=== PATIENT | female | born 1990 | race Caucasian/White ===

== ENCOUNTER 2018-06-24 19:30 | Emergency (ER) | payer MEDICAID ==
[~2018-06-24] VITALS: Ht 149.9 cm; Wt 66.8 kg
[~2018-06-24 19:30] MED LIST: FERR1TAB51; FERR1TAB51 PO; PREN-88; PREN-88 PO
[2018-06-24] MEDS ORDERED: ACETAMINOPHEN 500MG TABLET PO ONE (22:45)
[2018-06-25 00:28] VITALS: BP 124/80
== END 2018-06-25 00:30 | disposition home or self-care (01) ==
LOC: ER 19:30
DX: F07.81 Postconcussional syndrome (principal); S00.83XA Contusion of other part of head, initial encounter; F41.9 Anxiety disorder, unspecified; Z90.49 Acquired absence of other specified parts of digestive tract; Z95.0 Presence of cardiac pacemaker; W21.11XA Struck by baseball bat, initial encounter; Y93.89 Activity, other specified; Y92.018 Other place in single-family (private) house as the place of occurrence of the external cause
CPT/HCPCS: 99284

== ENCOUNTER 2018-10-07 23:40 | Emergency (ER) | payer MEDICAID ==
[~2018-10-07] VITALS: Ht 154.9 cm; Wt 68.0 kg
[2018-10-08] MEDS ORDERED: BACITRACIN ZINC OINT UDPKT TOP ONE (02:15)
[2018-10-08] MEDS ORDERED: ACETAMINOPHEN 500MG TABLET PO ONE (02:15)
[2018-10-08 02:51] VITALS: BP 144/77
== END 2018-10-08 02:52 | disposition home or self-care (01) ==
LOC: ER 23:40
DX: S93.601A Unspecified sprain of right foot, initial encounter (principal); S91.301A Unspecified open wound, right foot, initial encounter; I51.9 Heart disease, unspecified; Z95.0 Presence of cardiac pacemaker; V29.9XXA Motorcycle rider (driver) (passenger) injured in unspecified traffic accident, initial encounter; Y93.89 Activity, other specified; Y92.89 Other specified places as the place of occurrence of the external cause; Y99.8 Other external cause status
CPT/HCPCS: 73610; 73630; 99283; A4217

== ENCOUNTER 2018-11-21 13:44 | Emergency (ER) | payer MEDICAID ==
[~2018-11-21] VITALS: Ht 157.5 cm; Wt 71.0 kg
[2018-11-21 15:10] LABS: CLARITY URINE CLEAR (CLEAR); COLOR URINE YELLOW (YELLOW); KETONES URINE NEGATIVE (NEGATIVE); LEUKOCYTE ESTERASE URINE NEGATIVE (NEGATIVE); NITRITE URINE NEGATIVE (NEGATIVE); OCCULT BLOOD URINE NEGATIVE (NEGATIVE); PH URINE 5.5 (4.5-8.0); PROTEIN URINE NEGATIVE (NEGATIVE); SPECIFIC GRAVITY URINE 1.021 (1.005-1.030); UROBILINOGEN URINE 0.2 E.U./dL (0.2-1.0)
[2018-11-21 15:22] LABS: HEMATOCRIT 41.6 % (36.0-48.0); HEMOGLOBIN 14.1 g/dL (12.0-16.0); MEAN CORPUSCULAR HEMOGLOBIN 30.1 pg (28.0-32.0); MEAN CORPUSCULAR VOLUME 88.7 fL (81.0-99.0); PLATELET 222 x1000/uL (130-400); RED BLOOD CELL COUNT 4.69 mill/uL (4.2-5.4); RED CELL DISTRIBUTION WIDTH 14.8 % (11.6-14.6)
[2018-11-21 15:23] LABS: CHLORIDE 108 mEq/L (98-107)
[2018-11-21] MEDS: SODIUM CHLORIDE 0.9% 1,000 ML IV ONE (15:30)
[2018-11-21] MEDS: ONDANSETRON HCL 4MG/2ML INJ IV ONE (15:30)
[2018-11-21] MEDS: DICYCLOMINE HCL 10MG/ML 2ML AMP IM ONE (15:30)
[2018-11-21 17:28] VITALS: BP 114/66
== END 2018-11-21 17:31 | disposition home or self-care (01) ==
LOC: ER 13:44
DX: R10.9 Unspecified abdominal pain (principal); R11.2 Nausea with vomiting, unspecified; R00.1 Bradycardia, unspecified; Z95.0 Presence of cardiac pacemaker; Z90.89 Acquired absence of other organs; Z90.49 Acquired absence of other specified parts of digestive tract
CPT/HCPCS: 36415; 80053; 81003; 81025; 83690; 85027; 96361; 96372; 96374; 99283; J0500; J2405; J7030

== ENCOUNTER 2018-11-23 22:56 | Emergency (ER) | payer MEDICAID ==
[~2018-11-23] VITALS: Ht 162.6 cm; Wt 70.0 kg
[2018-11-23] MEDS ORDERED: IBUPROFEN 600MG TABLET PO STA (23:48)
[2018-11-23] MEDS ORDERED: SODIUM CHLORIDE 0.9% 1,000 ML IV ONE (23:48)
[2018-11-24] VITALS: BP 127/80
[2018-11-24] MEDS ORDERED: CEFTRIAXONE 1 G PREMIX 50 ML IV ONE
[2018-11-24 00:02] LABS: BASOPHILS % 0.3 % (0.0-2.0); EOSINOPHILS % 0.3 % (0.0-5.0); HEMATOCRIT. 39.3 % (36.0-48.0); HEMOGLOBIN. 13.4 g/dL (12.0-16.0); LYMPHOCYTES % 12.9 % (20.0-50.0); MEAN CORPUSCULAR HEMOGLOBIN 29.7 pg (28.0-32.0); MEAN CORPUSCULAR VOLUME 87.1 fL (81.0-99.0); MEAN PLATELET VOLUME 8.2 fl (7.4-10.4); MONOCYTES % 9.3 % (2.0-8.0); NEUTROPHILS % 77.2 % (40.0-76.0); PLATELET 201 x1000/uL (130-400); RED BLOOD CELL COUNT 4.51 mill/uL (4.2-5.4); RED CELL DISTRIBUTION WIDTH 14.7 % (11.6-14.6)
[2018-11-24 00:08] LABS: CHLORIDE 106 mEq/L (98-107)
== END 2018-11-24 02:09 | disposition home or self-care (01) ==
LOC: ER 22:56
DX: L03.311 Cellulitis of abdominal wall (principal); I51.9 Heart disease, unspecified; F17.210 Nicotine dependence, cigarettes, uncomplicated; Z95.0 Presence of cardiac pacemaker; Z90.49 Acquired absence of other specified parts of digestive tract; Z90.89 Acquired absence of other organs
CPT/HCPCS: 36415; 80048; 85025; 96365; 99283; J0696; J7030

== ENCOUNTER 2019-02-02 16:21 | Emergency (ER) | payer MEDICAID ==
[~2019-02-02] VITALS: Ht 157.5 cm; Wt 90.0 kg
[2019-02-02 16:35] VITALS: BP 124/74
[2019-02-02] MEDS ORDERED: SODIUM CHLORIDE 0.9% 500 ML IV ONE (18:30)
[2019-02-02] MEDS ORDERED: DIPHENHYDRAMINE 50MG/ML VIAL IV ONE (18:30)
[2019-02-02] MEDS ORDERED: METOCLOPRAMIDE HCL 10MG/2ML VIAL IV ONE (18:30)
== END 2019-02-02 18:38 | disposition left against medical advice (07) ==
LOC: ER 16:21
DX: Z53.21 Procedure and treatment not carried out due to patient leaving prior to being seen by health care provider (principal)
CPT/HCPCS: J7040

== ENCOUNTER 2019-04-02 23:17 | Emergency (ER) | payer MEDICAID ==
[~2019-04-02] VITALS: Ht 149.9 cm; Wt 73.1 kg
[2019-04-03 01:00] LABS: BASOPHILS % 0.5 % (0.0-2.0); EOSINOPHILS % 1.3 % (0.0-5.0); HEMATOCRIT. 42.7 % (36.0-48.0); HEMOGLOBIN. 14.6 g/dL (12.0-16.0); LYMPHOCYTES % 28.9 % (20.0-50.0); MEAN CORPUSCULAR HEMOGLOBIN 30.7 pg (28.0-32.0); MEAN CORPUSCULAR VOLUME 89.8 fL (81.0-99.0); MEAN PLATELET VOLUME 8.8 fl (7.4-10.4); MONOCYTES % 7.8 % (2.0-8.0); NEUTROPHILS % 61.5 % (40.0-76.0); PLATELET 228 x1000/uL (130-400); RED BLOOD CELL COUNT 4.75 mill/uL (4.2-5.4); RED CELL DISTRIBUTION WIDTH 13.8 % (11.6-14.6)
[2019-04-03 01:06] LABS: CHLORIDE 108 mEq/L (98-107)
[2019-04-03 01:16] LABS: HCG SCREEN NEGATIVE
[2019-04-03 01:40] LABS: CLARITY URINE CLEAR (CLEAR); COLOR URINE YELLOW (YELLOW); KETONES URINE NEGATIVE (NEGATIVE); LEUKOCYTE ESTERASE URINE NEGATIVE (NEGATIVE); NITRITE URINE NEGATIVE (NEGATIVE); OCCULT BLOOD URINE NEGATIVE (NEGATIVE); PROTEIN URINE NEGATIVE (NEGATIVE); SPECIFIC GRAVITY URINE 1.024 (1.005-1.030); UROBILINOGEN URINE 0.2 E.U./dL (0.2-1.0)
[2019-04-03 06:00] VITALS: BP 133/68
== END 2019-04-03 06:42 | disposition home or self-care (01) ==
LOC: ER 23:17
DX: R07.89 Other chest pain (principal); F43.20 Adjustment disorder, unspecified; M79.641 Pain in right hand; M79.642 Pain in left hand; F12.10 Cannabis abuse, uncomplicated; F41.9 Anxiety disorder, unspecified; Z90.49 Acquired absence of other specified parts of digestive tract; Z79.899 Other long term (current) drug therapy
CPT/HCPCS: 36415; 71045; 80053; 81003; 81025; 83880; 84484; 84703; 85025; 87804; 93005; 99284; Z7610

== ENCOUNTER 2019-05-04 19:13 | Emergency (ER) | payer MEDICAID ==
[~2019-05-04] VITALS: Ht 160 cm; Wt 91.0 kg
[2019-05-04] MEDS ORDERED: HYDROCODONE/ACETAMINOPHEN 5/325MG TABLET PO ONE (20:45)
[2019-05-04 21:44] VITALS: BP 112/69
[2019-05-04] MEDS ORDERED: KETOROLAC 60MG/2ML VIAL IM ONE (22:15)
== END 2019-05-05 00:07 | disposition home or self-care (01) ==
LOC: ER 19:14
DX: S20.229A Contusion of unspecified back wall of thorax, initial encounter (principal); S20.219A Contusion of unspecified front wall of thorax, initial encounter; K21.9 Gastro-esophageal reflux disease without esophagitis; I51.9 Heart disease, unspecified; F12.10 Cannabis abuse, uncomplicated; Z90.49 Acquired absence of other specified parts of digestive tract; Z90.89 Acquired absence of other organs; Z95.0 Presence of cardiac pacemaker; Z79.899 Other long term (current) drug therapy; Y04.0XXA Assault by unarmed brawl or fight, initial encounter; Y93.89 Activity, other specified; Y92.89 Other specified places as the place of occurrence of the external cause; Y99.8 Other external cause status
CPT/HCPCS: 93005; 96372; 99283; J1885

== ENCOUNTER 2019-05-15 14:46 | Emergency (ER) | payer MEDICAID ==
[2019-05-15] MEDS ORDERED: KETOROLAC 60MG/2ML VIAL IM ONE (16:00)
[2019-05-15] MEDS ORDERED: ACETAMINOPHEN 325MG TABLET PO ONE (17:30)
[2019-05-15 19:12] VITALS: BP 120/60
== END 2019-05-15 19:19 | disposition home or self-care (01) ==
LOC: ER 14:58
DX: S00.81XA Abrasion of other part of head, initial encounter (principal); R42 Dizziness and giddiness; F12.10 Cannabis abuse, uncomplicated; Z79.899 Other long term (current) drug therapy; Z90.49 Acquired absence of other specified parts of digestive tract; Y04.0XXA Assault by unarmed brawl or fight, initial encounter; Y93.89 Activity, other specified; Y92.89 Other specified places as the place of occurrence of the external cause; Y99.8 Other external cause status
CPT/HCPCS: 70450; 96372; 99284; J1885

== ENCOUNTER 2019-05-17 11:56 | Emergency (ER) | payer MEDICAID ==
[~2019-05-17] VITALS: Ht 160 cm; Wt 73.0 kg
[2019-05-17] MEDS ORDERED: IBUP-2029 PO (12:14)
[2019-05-17 14:20] VITALS: BP 115/59
[2019-05-17] MEDS ORDERED: METOCLOPRAMIDE HCL 10MG/2ML VIAL IM ONE (16:45)
[2019-05-17] MEDS ORDERED: KETOROLAC 60MG/2ML VIAL IM STA (16:45)
== END 2019-05-17 17:50 | disposition home or self-care (01) ==
LOC: ER 13:08
DX: S09.90XA Unspecified injury of head, initial encounter (principal); G44.89 Other headache syndrome; F12.10 Cannabis abuse, uncomplicated; Y08.89XA Assault by other specified means, initial encounter; Y93.89 Activity, other specified; Y92.89 Other specified places as the place of occurrence of the external cause; Y99.8 Other external cause status
CPT/HCPCS: 96372; 99283; J1885; J2765

== ENCOUNTER 2019-06-14 22:31 | Emergency (ER) | payer MEDICAID ==
[~2019-06-14] VITALS: Ht 147.3 cm; Wt 73.0 kg
[~2019-06-14 22:31] MED LIST changes: +IBUP-2029 PO
[2019-06-15 00:10] LABS: CLARITY URINE CLEAR (CLEAR); COLOR URINE YELLOW (YELLOW); KETONES URINE NEGATIVE (NEGATIVE); LEUKOCYTE ESTERASE URINE 2+ (NEGATIVE); NITRITE URINE NEGATIVE (NEGATIVE); OCCULT BLOOD URINE NEGATIVE (NEGATIVE); PROTEIN URINE NEGATIVE (NEGATIVE); SPECIFIC GRAVITY URINE 1.015 (1.005-1.030); UROBILINOGEN URINE 0.2 E.U./dL (0.2-1.0)
[2019-06-15 00:48] VITALS: BP 111/83
== END 2019-06-15 00:48 | disposition home or self-care (01) ==
LOC: ER 22:31
DX: N76.0 Acute vaginitis (principal); N39.0 Urinary tract infection, site not specified; F12.10 Cannabis abuse, uncomplicated; R01.1 Cardiac murmur, unspecified; Z95.0 Presence of cardiac pacemaker
CPT/HCPCS: 81003; 81025; 99283

== ENCOUNTER 2019-12-06 15:59 | Emergency (ER) | payer MEDICAID ==
[~2019-12-06] VITALS: Ht 157.5 cm; Wt 62.0 kg
[2019-12-06 16:01] VITALS: BP 120/78
== END 2019-12-06 17:15 | disposition home or self-care (01) ==
LOC: ER 15:59
DX: L03.012 Cellulitis of left finger (principal); Z95.0 Presence of cardiac pacemaker; Z79.899 Other long term (current) drug therapy
CPT/HCPCS: 99283

== ENCOUNTER 2021-04-21 11:06 | Emergency (ER) | payer MEDICAID ==
[~2021-04-21] VITALS: Ht 160 cm; Wt 69.0 kg
[2021-04-21 15:35] VITALS: BP 122/77
== END 2021-04-21 15:37 | disposition home or self-care (01) ==
LOC: ER 11:06
DX: U07.1 COVID-19 (principal); J06.9 Acute upper respiratory infection, unspecified; F12.10 Cannabis abuse, uncomplicated; J45.909 Unspecified asthma, uncomplicated; Z88.8 Allergy status to other drugs, medicaments and biological substances; Z90.49 Acquired absence of other specified parts of digestive tract
CPT/HCPCS: 71045; 99284; C9803; U0003; U0005

== ENCOUNTER 2022-02-06 00:55 | Emergency (ER) | payer MEDICAID ==
[~2022-02-06] VITALS: Ht 165.1 cm; Wt 64.0 kg
[2022-02-06 00:56] VITALS: BP 126/76
== END 2022-02-06 04:49 | disposition left against medical advice (07) ==
LOC: ER 01:10
DX: Z53.21 Procedure and treatment not carried out due to patient leaving prior to being seen by health care provider (principal)

== ENCOUNTER 2022-02-09 16:36 | Emergency (ER) | payer MEDICAID ==
[~2022-02-09] VITALS: Ht 167.6 cm; Wt 77.0 kg
[2022-02-09] MEDS ORDERED: ACETAMINOPHEN 325MG TABLET PO STA (17:26)
[2022-02-09 18:12] LABS: BASOPHILS % 0.6 % (0.0-2.0); EOSINOPHILS % 0.7 % (0.0-5.0); HEMATOCRIT. 35.6 % (36.0-48.0); HEMOGLOBIN. 11.7 g/dL (12.0-16.0); LYMPHOCYTES % 26.8 % (20.0-50.0); MEAN CORPUSCULAR HEMOGLOBIN 26.7 pg (28.0-32.0); MEAN CORPUSCULAR VOLUME 81.3 fL (81.0-99.0); MEAN PLATELET VOLUME 7.6 fl (7.4-10.4); MONOCYTES % 8.3 % (2.0-8.0); NEUTROPHILS % 63.6 % (40.0-76.0); PLATELET 286 x1000/uL (130-400); RED BLOOD CELL COUNT 4.38 mill/uL (4.2-5.4); RED CELL DISTRIBUTION WIDTH 15.4 % (11.6-14.6)
[2022-02-09 18:19] LABS: CHLORIDE 107 mEq/L (98-107)
[2022-02-09 18:25] LABS: HCG SCREEN NEGATIVE
[2022-02-09 18:28] LABS: ETHANOL BLOOD < 10 mg/dL
[2022-02-09 18:56] LABS: *AMPHETAMINES SCREEN URINE NEGATIVE (NEGATIVE); *BARBITURATES SCREEN URINE NEGATIVE (NEGATIVE); *BENZODIAZEPINES SCREEN URINE NEGATIVE (NEGATIVE); *COCAINE SCREEN URINE NEGATIVE (NEGATIVE); METHADONE URINE SCREEN NEGATIVE (NEGATIVE); OPIATES URINE SCREEN NEGATIVE (NEGATIVE); PHENCYCLIDINE URINE SCREEN NEGATIVE (NEGATIVE)
[2022-02-09 19:00] LABS: CANNABINOID URINE SCREEN PRESUMTIVE POSITIVE (NEGATIVE)
[2022-02-09 19:12] LABS: CLARITY URINE CLEAR (CLEAR); COLOR URINE YELLOW (YELLOW); PH URINE 6.5 (4.5-8.0); SPECIFIC GRAVITY URINE 1.025 (1.005-1.030)
[2022-02-09 19:13] LABS: KETONES URINE 1+ (NEGATIVE); LEUKOCYTE ESTERASE URINE NEGATIVE (NEGATIVE); NITRITE URINE NEGATIVE (NEGATIVE); OCCULT BLOOD URINE NEGATIVE (NEGATIVE); PROTEIN URINE 1+ (NEGATIVE); UROBILINOGEN URINE 0.2 E.U./dL (0.2-1.0)
[2022-02-09] MEDS ORDERED: HYDROCODONE/ACETAMINOPHEN 5/325MG TABLET PO ONE (20:00)
[2022-02-09 20:10] VITALS: BP 127/63
[2022-02-09] MEDS ORDERED: AMOXICILLIN/POTASSIUM CLAVULANATE 875/125MG TAB PO ONE (21:30)
[2022-02-09] MEDS ORDERED: HYDR-4001 MT (21:33)
[2022-02-09] MEDS ORDERED: HYDR25SU37 RC (21:33)
[2022-02-09] MEDS ORDERED: AMOX1TAB16 MT (21:33)
[2022-02-09] MEDS ORDERED: METO-293 MT (21:33)
[2022-02-09] MEDS ORDERED: METR375C2 MT (21:45)
== END 2022-02-09 22:18 | disposition home or self-care (01) ==
LOC: ER 16:36
DX: K52.9 Noninfective gastroenteritis and colitis, unspecified (principal); D64.9 Anemia, unspecified; F12.10 Cannabis abuse, uncomplicated; J45.909 Unspecified asthma, uncomplicated; Z88.0 Allergy status to penicillin; Z79.899 Other long term (current) drug therapy; Z90.49 Acquired absence of other specified parts of digestive tract; Z90.89 Acquired absence of other organs; Z13.9 Encounter for screening, unspecified
CPT/HCPCS: 36415; 74176; 76830; 76856; 80053; 80305; 80320; 81003; 81025; 84703; 85025; 99284; G0480